=== PATIENT | female | born 1975 | race African-American/Black ===

== ENCOUNTER 2017-03-29 09:20 | Outpatient (CLI) | payer BC ==
--- NOTE | 2017-03-29 10:11 | Mammography Report ---
Screening mammogram: Baseline examination. The patient has a diffusely dense fibroglandular pattern bilaterally. In the left breast there is oval density in the medial breast which is questionably noted in the superior breast on lateral projection. In the lateral right CC projection there is an ovoid density that is questionably noted in the lateral projection. The findings otherwise appear generally unremarkable. CAD used. Impression: Bilateral asymmetries. Recommendation: Additional bilateral compression views and ultrasound as needed. BI-RADS CATEGORY: 0 = Needs additional imaging evaluation ACR BI-RADS MAMMOGRAPHIC CODES: 0 = Needs additional imaging evaluation; 1 = Negative; 2 = Benign; 3 = Probably benign; 4 = Suspicious; 5 = Malignant; 6 = Known biopsy-proven malignancy COMMENT: 1. Dense breast tissue, i.e., adenosis, fibrocystic changes, etc., may obscure an underlying neoplasm. 2. Approximately 10% of cancers are not detected with mammography. 3. A negative mammography report should not delay biopsy if a clinically suspicious mass is present.
== END 2017-03-29 09:21 | disposition home or self-care (01) ==
LOC: MAMMO 09:20
PROVIDERS: ATTEND Internal Medicine
DX: Z12.31 Encounter for screening mammogram for malignant neoplasm of breast (principal)
CPT/HCPCS: 77067; G0202

== ENCOUNTER 2017-04-19 08:03 | Outpatient (CLI) | payer BC ==
--- NOTE | 2017-04-19 08:58 | Mammography Report ---
BILATERAL DIGITAL DIAGNOSTIC MAMMOGRAM : 04/19/17 08:03:00 CLINICAL: Recall for bilateral asymmetries. COMPARISON:03/29/17 screening FINDINGS: Bilateral spot compression views were performed and are negative. IMPRESSION: Negative Mammogram. BI-RADS CATEGORY: 1 -- Negative RECOMMENDATION: Routine mammographic screening in one year. ACR BI-RADS MAMMOGRAPHIC CODES: 0 = Needs additional imaging evaluation; 1 = Negative; 2 = Benign; 3 = Probably benign; 4 = Suspicious; 5 = Malignant; 6 = Known biopsy-proven malignancy COMMENT: 1. Dense breast tissue, i.e., adenosis, fibrocystic changes, etc., may obscure an underlying neoplasm. 2. Approximately 10% of cancers are not detected with mammography. 3. A negative mammography report should not delay biopsy if a clinically suspicious mass is present. COMMENT: Patient follow-up letters are generated via our [employer] application.
== END 2017-04-19 08:04 | disposition home or self-care (01) ==
LOC: MAMMO 08:03
PROVIDERS: ATTEND Internal Medicine
DX: R92.8 Other abnormal and inconclusive findings on diagnostic imaging of breast (principal)
CPT/HCPCS: 77066; G0204

== ENCOUNTER 2017-12-17 05:05 | Inpatient (IN) | payer BC, OTHER ==
[2017-12-17] MEDS ORDERED: NACL 0.9% 1000 ML 1,000 ML IV ONE ×3 (05:36→12:32)
[2017-12-17] MEDS ORDERED: ZOFRAN IV ONE ×2 (05:36→11:48)
[2017-12-17] MEDS ORDERED: TORADOL ONE (05:44)
[2017-12-17] MEDS ORDERED: TORADOL IV ONE ×2 (06:05→09:34)
[2017-12-17 06:47] LABS: Alanine Aminotransferase 12 units/L (7-56); Albumin 4.6 g/dL (3.9-5); BUN/Creatinine Ratio 30; Blood Urea Nitrogen 12 mg/dL (7-17); Calcium 9.1 mg/dL (8.4-10.2); Hemolysis Index 21; Lipase 48 units/L (13-60)
[2017-12-17 06:49] LABS: Hemoglobin 12.5 gm/dl (10.1-14.3); Mean Corpuscular HGB Conc 32 % (30-34); Mean Corpuscular Hemoglobin 27 pg (28-32); Mean Corpuscular Volume 85 fl (79-97); Platelet Count 256 K/mm3 (140-440); Red Cell Distribution Width 14.2 % (13.2-15.2)
[2017-12-17 07:33] LABS: Bilirubin,Urine NEG (Negative); Blood,Urine NEG (Negative); Color,Urine Yellow (Yellow); Mucus,Urine 1+ /HPF; Protein,Urine <15 mg/dL mg/dL (Negative); Urobilinogen,Urine < 2.0 mg/dL (<2.0); WBC,Urine < 1.0 /HPF (0.0-6.0)
[2017-12-17 09:09] LABS: Band Neutrophils # (Manual) 0.9 K/mm3; Basophils % (Manual) 0 % (0.0-1.8); Eosinophils % (Manual) 0 % (0.0-4.3); RBC Morphology Normal; Total Cells Counted 100
[2017-12-17] MEDS ORDERED: PEPCID IV ONE (09:34)
--- NOTE | 2017-12-17 10:22 | Cat Scan Report ---
CT ABDOMEN PELVIS WITH CONTRAST: HISTORY: abdominal pain, nausea, vomiting, diarrhea. COMPARISON: none. TECHNIQUE: Helical CT in 1.25mm intervals following IV contrast. Sagittal and coronal reconstructions. FINDINGS: Lung bases: Normal. Liver: Normal. Biliary system: Normal. Pancreas: Normal. Spleen: Normal. Kidneys/ureters/bladder: Normal. Adrenal glands: Normal. Aorta: Normal. Intestines: There are multiple mildly dilated and fluid filled loops of distal small bowel. The terminal ileum and colon appear decompressed. The transition point is not confidently identified. The overall pattern is consistent with a partial distal small bowel obstruction. Appendix: Normal. Pelvic viscera: A 2.9 cm right ovarian cyst is identified. The uterus and left adnexa are unremarkable. Moderate to large left ovarian vein varicosity is noted. Ascites: Moderate pelvic ascites is identified. Adenopathy: None. Musculoskeletal: Normal. IMPRESSION: Mildly dilated loops of mid to distal small bowel are identified concerning for a partial small bowel obstruction. The site of the obstruction is not clearly evident but appears to be in the pelvis. Moderate pelvic ascites. 2.9 cm right ovarian cyst.
--- NOTE | 2017-12-17 10:23 | Emergency Department Report ---
Blank Doc - Documentation Documentation: She is a 42-year-old female who is presenting with nausea vomiting diarrhea. Patient states that she has some epigastric discomfort that is a burning aching sensation is 7 out of 10 in severity. Patient's has had numerous episodes of vomiting several diarrhea. Patient states that she has had some epigastric discomfort in the past but has not been this severe. Patient didn't have any pain for approximately 24 hours. Patient denies any fevers chills headache chest pain cough and congestion. Patient states she is not dizzy when she stands. Laboratory studies will be reviewed and the patient will have a CT of the abdomen and pelvis.
--- NOTE | 2017-12-17 11:01 | Emergency Department Report ---
ED Abdominal Pain HPI - General Chief Complaint: Abdominal Pain Stated Complaint: NAUSEA Time Seen by Provider: 12/17/17 09:22 Source: patient Mode of arrival: Ambulatory Limitations: No Limitations - History of Present Illness Initial Comments: 42-year-old female past medical history C-sections presents with complaint of nausea vomiting and abdominal pain since last night. Patient is awake alert and oriented 3 nontoxic-appearing speaking in full sentences. Denies any recent abdominal trauma. No previous surgeries other than C-sections. Denies any dysuria or hematuria or increased urinary frequency. Patient states that her abdomen is intermittently hurting her significantly. MD Complaint: abdominal pain -: Last night Location: periumbilical Migration to: periumbilical Severity scale (0 -10): 6 Quality: aching Consistency: intermittent Worsens With: eating - Related Data Home Medications Medication Instructions Recorded Confirmed Last Taken No Known Home Medications [No 12/17/17 12/17/17 Unknown Reported Home Medications] Allergies Allergy/AdvReac Type Severity Reaction Status Date / Time No Known Allergies Allergy Verified 12/17/17 05:52 ED Review of Systems ROS: Stated complaint: NAUSEA Other details as noted in HPI Constitutional: denies: chills, fever Eyes: denies: eye pain, eye discharge, vision change ENT: denies: ear pain, throat pain Respiratory: denies: cough, shortness of breath, wheezing Cardiovascular: denies: chest pain, palpitations Endocrine: no symptoms reported Gastrointestinal: abdominal pain, nausea, vomiting. denies: diarrhea Genitourinary: denies: urgency, dysuria, discharge Musculoskeletal: denies: back pain, joint swelling, arthralgia Skin: denies: rash, lesions Neurological: denies: headache, weakness, paresthesias Psychiatric: denies: anxiety, depression Hematological/Lymphatic: denies: easy bleeding, easy bruising ED Past Medical Hx - Past Medical History Previous Medical History?: No - Surgical History Additional Surgical History: - Social History Smoking Status: Never Smoker Substance Use Type: None - Medications Home Medications: Home Medications Medication Instructions Recorded Confirmed Last Taken Type No Known Home Medications [No 12/17/17 12/17/17 Unknown History Reported Home Medications] ED Physical Exam - General Limitations: No Limitations General appearance: alert, in no apparent distress - Head Head exam: Present: atraumatic, normocephalic - Eye Eye exam: Present: normal appearance - ENT ENT exam: Present: mucous membranes moist - Neck Neck exam: Present: normal inspection - Respiratory Respiratory exam: Present: normal lung sounds bilaterally. Absent: respiratory distress - Cardiovascular Cardiovascular Exam: Present: regular rate, normal rhythm. Absent: systolic murmur, diastolic murmur, rubs, gallop - GI/Abdominal GI/Abdominal exam: Present: tenderness, guarding, rebound, rigid, diminished bowel sounds - Extremities Exam Extremities exam: Present: normal inspection - Back Exam Back exam: Present: normal inspection - Neurological Exam Neurological exam: Present: alert, oriented X3, CN II-XII intact, normal gait - Psychiatric Psychiatric exam: Present: normal affect, normal mood - Skin Skin exam: Present: warm, dry, intact, normal color. Absent: rash ED Course Vital Signs 12/17/17 12/17/17 12/17/17 05:26 10:08 10:09 Temperature 97.5 F L 98.3 F Pulse Rate 79 68 Respiratory 16 14 14 Rate Blood Pressure 121/78 Blood Pressure 103/53 [Left] O2 Sat by Pulse 98 100 100 Oximetry ED Medical Decision Making - Lab Data Result diagrams: 12/17/17 05:58 12/17/17 05:58 - Medical Decision Making A/P: Small bowel obstruction 1- nothing by mouth, IV fluid, IV analgesics and antiemetics 2- discussed with Nabeel on-call physician 3- case discussed with on-call surgeon Dr. Starr and the hospitalist. Serial abdominal exams, bowel rest, and ngt. patient has been nothing by mouth since as per patient. Surgeon to reassess in next 24 hours 4- NG tube in place Critical care attestation.: If time is entered above; I have spent that time in minutes in the direct care of this critically ill patient, excluding procedure time. ED Disposition Clinical Impression: Small bowel obstruction Disposition: OP ADMIT IP TO THIS HOSP Is pt being admited?: Yes Does the pt Need Aspirin: No Condition: Stable Instructions: Abdominal Pain (ED) Referrals: PRIMARY CARE, [Primary Care Provider] - 3-5 Days
--- NOTE | 2017-12-17 12:50 | XRay Report ---
AP ABDOMEN: HISTORY: Nasogastric tube placement. The nasogastric tube terminates in the fundus of the stomach. Mildly dilated loops of small bowel in the abdomen are again identified concerning for a partial small bowel obstruction. There is residual IV contrast in the renal collecting systems and bladder. IMPRESSION: The nasogastric tube terminates in the fundus of the stomach.
[2017-12-17] MEDS ORDERED: ZOFRAN IV PRN ×2 (19:32→20:46)
[2017-12-17] MEDS ORDERED: SODIUM CHLORIDE FLUSH SYRINGE 10 ML IV PRN (19:32)
[2017-12-17] MEDS ORDERED: TYLENOL PO PRN (19:32)
[2017-12-17] MEDS ORDERED: MORPHINE IV PRN ×2 (19:32→20:35)
--- NOTE | 2017-12-17 19:32 | History and Physical Report ---
History of Present Illness Date of examination: 12/17/17 Date of admission: 12/17/17 14:15 Chief complaint: CC Abd pain and vomiting for 1 day. History of present illness: History of Present Illness Initial Comments: 42-year-old female past medical history C-sections presents with complaint of nausea, vomiting and abdominal pain since last night. Patient is awake alert and oriented 3 nontoxic-appearing speaking in full sentences. Denies any recent abdominal trauma. No previous surgeries other than C-sections. Denies any dysuria or hematuria or increased urinary frequency. Patient states that her abdomen is intermittently hurting her significantly. MD Complaint: abdominal pain-: Last night Location: periumbilical Radiation to: periumbilical Severity scale (0 -10): 6 Quality: aching Consistency: intermittent Worsens With: eating - Past Medical History Previous Medical History?: No - Surgical History Additional Surgical History: - Social History Smoking Status: Never Smoker Substance Use Type: None - Medications Home Medications: Home Medications Medication Instructions Recorded Confirmed Last Taken Type No Known Home Medications [No 12/17/17 12/17/17 Unknown History Reported Home Medications] Review of Systems ROS: Stated complaint: NAUSEA Other details as noted in HPI Constitutional: denies: chills, fever Eyes: denies: eye pain, eye discharge, vision change ENT: denies: ear pain, throat pain Respiratory: denies: cough, shortness of breath, wheezing Cardiovascular: denies: chest pain, palpitations Endocrine: no symptoms reported Gastrointestinal: abdominal pain, nausea, vomiting. denies: diarrhea Genitourinary: denies: urgency, dysuria, discharge Musculoskeletal: denies: back pain, joint swelling, arthralgia Skin: denies: rash, lesions Neurological: denies: headache, weakness, paresthesias Psychiatric: denies: anxiety, depression Hematological/Lymphatic: denies: easy bleeding, easy bruising Medications and Allergies Allergies Allergy/AdvReac Type Severity Reaction Status Date / Time No Known Allergies Allergy Verified 12/17/17 05:52 Home Medications Medication Instructions Recorded Confirmed Last Taken Type No Known Home Medications [No 12/17/17 12/17/17 Unknown History Reported Home Medications] Active Meds: Active Medications Sodium Chloride (Nacl 0.9% 1000 Ml) 1,000 mls @ 125 mls/hr IV ONCE ONE Stop: 12/17/17 20:31 Last Admin: 12/17/17 12:33 Dose: 125 mls/hr Exam - Physical Exam Narrative exam: Lying in bed in mild distress - Constitutional Vitals: Temp Pulse Resp BP Pulse Ox 98.6 F 68 15 105/61 100 12/17/17 16:00 12/17/17 19:15 12/17/17 19:15 12/17/17 19:15 12/17/17 19:15 General appearance: Present: mild distress, well-nourished - EENT Eyes: Present: PERRL ENT: hearing intact, clear oral mucosa - Neck Neck: Present: supple, normal ROM - Respiratory Respiratory effort: normal Respiratory: bilateral: CTA - Cardiovascular Heart rate: 78 Rhythm: regular Heart Sounds: Present: S1 & S2. Absent: rub, click - Extremities Extremities: no ischemia, pulses intact, pulses symmetrical, No edema Peripheral Pulses: within normal limits - Abdominal General gastrointestinal: Present: soft, tender, distended, normal bowel sounds , absent bowel sounds Female genitourinary: Present: normal - Rectal Rectal Exam: deferred - Integumentary Integumentary: Present: clear, warm, dry - Musculoskeletal Musculoskeletal: gait normal, strength equal bilaterally - Psychiatric Psychiatric: appropriate mood/affect, intact judgment & insight - Neurologic Neurologic: CNII-XII intact, moves all extremities - Allied Health Allied health notes reviewed: nursing, case management Results - Labs CBC & Chem 7: 12/18/17 05:29 12/18/17 05:29 Labs: Laboratory Last Values WBC 18.7 K/mm3 (4.5-11.0) H 12/17/17 05:58 RBC 4.60 M/mm3 (3.65-5.03) 12/17/17 05:58 Hgb 12.5 gm/dl (10.1-14.3) 12/17/17 05:58 Hct 39.0 % (30.3-42.9) 12/17/17 05:58 MCV 85 fl (79-97) 12/17/17 05:58 MCH 27 pg (28-32) L 12/17/17 05:58 MCHC 32 % (30-34) 12/17/17 05:58 RDW 14.2 % (13.2-15.2) 12/17/17 05:58 Plt Count 256 K/mm3 (140-440) 12/17/17 05:58 Add Manual Diff Complete 12/17/17 05:58 Total Counted 100 12/17/17 05:58 Seg Neutrophils % Expressive Music Therapist 12/17/17 05:58 Seg Neuts % (Manual) 83.0 % (40.0-70.0) H 12/17/17 05:58 Band Neutrophils % 5.0 % 12/17/17 05:58 Lymphocytes % (Manual) 5.0 % (13.4-35.0) L 12/17/17 05:58 Reactive Lymphs % (Man) 0 % 12/17/17 05:58 Monocytes % (Manual) 7.0 % (0.0-7.3) 12/17/17 05:58 Eosinophils % (Manual) 0 % (0.0-4.3) 12/17/17 05:58 Basophils % (Manual) 0 % (0.0-1.8) 12/17/17 05:58 Metamyelocytes % 0 % 12/17/17 05:58 Myelocytes % 0 % 12/17/17 05:58 Promyelocytes % 0 % 12/17/17 05:58 Blast Cells % 0 % 12/17/17 05:58 Nucleated RBC % Not Reportable 12/17/17 05:58 Seg Neutrophils # Man 15.5 K/mm3 (1.8-7.7) H 12/17/17 05:58 Band Neutrophils # 0.9 K/mm3 12/17/17 05:58 Lymphocytes # (Manual) 0.9 K/mm3 (1.2-5.4) L 12/17/17 05:58 Abs React Lymphs (Man) 0.0 K/mm3 12/17/17 05:58 Monocytes # (Manual) 1.3 K/mm3 (0.0-0.8) H 12/17/17 05:58 Eosinophils # (Manual) 0.0 K/mm3 (0.0-0.4) 12/17/17 05:58 Basophils # (Manual) 0.0 K/mm3 (0.0-0.1) 12/17/17 05:58 Metamyelocytes # 0.0 K/mm3 12/17/17 05:58 Myelocytes # 0.0 K/mm3 12/17/17 05:58 Promyelocytes # 0.0 K/mm3 12/17/17 05:58 Blast Cells # 0.0 K/mm3 12/17/17 05:58 WBC Morphology Not Reportable 12/17/17 05:58 Hypersegmented Neuts Not Reportable 12/17/17 05:58 Hyposegmented Neuts Not Reportable 12/17/17 05:58 Hypogranular Neuts Not Reportable 12/17/17 05:58 Smudge Cells Not Reportable 12/17/17 05:58 Toxic Granulation Not Reportable 12/17/17 05:58 Toxic Vacuolation Not Reportable 12/17/17 05:58 Dohle Bodies Not Reportable 12/17/17 05:58 Pelger-Huet Anomaly Not Reportable 12/17/17 05:58 Laura Rods Not Reportable 12/17/17 05:58 Platelet Estimate Not Reportable 12/17/17 05:58 Clumped Platelets Not Reportable 12/17/17 05:58 Plt Clumps, EDTA Not Reportable 12/17/17 05:58 Large Platelets Not Reportable 12/17/17 05:58 Giant Platelets Not Reportable 12/17/17 05:58 Platelet Satelliting Not Reportable 12/17/17 05:58 Plt Morphology Comment Not Reportable 12/17/17 05:58 RBC Morphology Normal 12/17/17 05:58 Dimorphic RBCs Not Reportable 12/17/17 05:58 Polychromasia Not Reportable 12/17/17 05:58 Hypochromasia Not Reportable 12/17/17 05:58 Poikilocytosis Not Reportable 12/17/17 05:58 Anisocytosis Not Reportable 12/17/17 05:58 Microcytosis Not Reportable 12/17/17 05:58 Macrocytosis Not Reportable 12/17/17 05:58 Spherocytes Not Reportable 12/17/17 05:58 Pappenheimer Bodies Not Reportable 12/17/17 05:58 Sickle Cells Not Reportable 12/17/17 05:58 Target Cells Not Reportable 12/17/17 05:58 Tear Drop Cells Not Reportable 12/17/17 05:58 Ovalocytes Not Reportable 12/17/17 05:58 Helmet Cells Not Reportable 12/17/17 05:58 Davis-Ursina Bodies Not Reportable 12/17/17 05:58 [place] Rings Not Reportable 12/17/17 05:58 Volant Cells Not Reportable 12/17/17 05:58 Bite Cells Not Reportable 12/17/17 05:58 Crenated Cell Not Reportable 12/17/17 05:58 Elliptocytes Not Reportable 12/17/17 05:58 Acanthocytes (Spur) Not Reportable 12/17/17 05:58 Rouleaux Not Reportable 12/17/17 05:58 Hemoglobin C Crystals Not Reportable 12/17/17 05:58 Schistocytes Not Reportable 12/17/17 05:58 Malaria parasites Not Reportable 12/17/17 05:58 Alexis Bodies Not Reportable 12/17/17 05:58 Hem Pathologist Commnt No 12/17/17 05:58 Sodium 140 mmol/L (137-145) 12/17/17 05:58 Potassium 3.9 mmol/L (3.6-5.0) 12/17/17 05:58 Chloride 99.4 mmol/L (98-107) 12/17/17 05:58 Carbon Dioxide 26 mmol/L (22-30) 12/17/17 05:58 Anion Gap 19 mmol/L 12/17/17 05:58 BUN 12 mg/dL (7-17) 12/17/17 05:58 Creatinine 0.4 mg/dL (0.7-1.2) L 12/17/17 05:58 Estimated GFR > 60 ml/min 12/17/17 05:58 BUN/Creatinine Ratio 30 % 12/17/17 05:58 Glucose 131 mg/dL (65-100) H 12/17/17 05:58 Lactic Acid 1.00 mmol/L (0.7-2.0) 12/17/17 15:46 Calcium 9.1 mg/dL (8.4-10.2) 12/17/17 05:58 Total Bilirubin 0.50 mg/dL (0.1-1.2) 12/17/17 05:58 AST 22 units/L (5-40) 12/17/17 05:58 ALT 12 units/L (7-56) 12/17/17 05:58 Alkaline Phosphatase 66 units/L (35-129) 12/17/17 05:58 Total Protein 8.0 g/dL (6.3-8.2) 12/17/17 05:58 Albumin 4.6 g/dL (3.9-5) 12/17/17 05:58 Albumin/Globulin Ratio 1.4 % 12/17/17 05:58 Lipase 48 units/L (13-60) 12/17/17 05:58 HCG, Qual Negative (Negative) 12/17/17 05:58 Urine Color Yellow (Yellow) 12/17/17 06:48 Urine Turbidity Clear (Clear) 12/17/17 06:48 Urine pH 6.0 (5.0-7.0) 12/17/17 06:48 Ur Specific [place] 1.019 (1.003-1.030) 12/17/17 06:48 Urine Protein <15 mg/dl mg/dL (Negative) 12/17/17 06:48 Urine Glucose (UA) Neg mg/dL (Negative) 12/17/17 06:48 Urine Ketones Tr mg/dL (Negative) 12/17/17 06:48 Urine Blood Neg (Negative) 12/17/17 06:48 Urine Nitrite Neg (Negative) 12/17/17 06:48 Urine Bilirubin Neg (Negative) 12/17/17 06:48 Urine Urobilinogen < 2.0 mg/dL (<2.0) 12/17/17 06:48 Ur Leukocyte Esterase Neg (Negative) 12/17/17 06:48 Urine WBC (Auto) < 1.0 /HPF (0.0-6.0) 12/17/17 06:48 Urine RBC (Auto) 4.0 /HPF (0.0-6.0) 12/17/17 06:48 U Epithel Cells (Auto) 2.0 /HPF (0-13.0) 12/17/17 06:48 Urine Mucus 1+ /HPF 12/17/17 06:48 Blood Type B POSITIVE 12/17/17 11:31 Antibody Screen Negative 12/17/17 11:31 - Imaging and Cardiology Imaging and Cardiology: CT Abdomen Mildly dilated loops of mid to distal small bowel are identified concerning fora partialsmall bowel obstruction.The site of obstruction is not clearly evident but appears to be in the pelvis.2.9 cm right ovarian cyst. Assessment and Plan Advance Directives: Yes (Full code) VTE prophylaxis?: Chemical Plan of care discussed with patient/family: Yes - Patient Problems (1) Small bowel obstruction Current Visit: Yes Status: Acute Plan to address problem: Conservative treatment for now. NG tube to suction IV fluids (2) Hypokalemia Current Visit: Yes Status: Acute Plan to address problem: Suppplemented (3) Leukocytosis Current Visit: Yes Status: Acute Qualifiers: Leukocytosis type: unspecified Qualified Code(s): D72.829 - Elevated white blood cell count, unspecified Plan to address problem: Probable demargination Lactic acid is high Will initiate on Zosyn and deescalate depending on Blood cultures in 48 hrs (4) DVT prophylaxis Current Visit: Yes Status: Acute Plan to address problem: On Lovenox and GI prophylaxis
[2017-12-17] MEDS ORDERED: D5NS 1,000 ML IV SCH (20:00)
[2017-12-17] MEDS: SODIUM CHLORIDE FLUSH SYRINGE 10 ML IV SCH (22:00)
--- NOTE | 2017-12-17 22:12 | XRay Report ---
FINAL REPORT PROCEDURE: XR ABD SERIES W CXR 1V TECHNIQUE: Abdominal series complete, including supine and upright AP views of the abdomen and frontal chest. HISTORY: Rule out small bowel obstruction. COMPARISON: No prior studies are available for comparison. FINDINGS: Heart: Normal. Mediastinum/Vessels: Normal. Lungs/Pleural space: Air and stool present throughout the colon. Mildly distended loops of small bowel in the mid abdomen. Bowel gas pattern: Nonobstructive. Masses or calcifications: None. Bony structures: No acute osseous abnormality. Other: Enteric tube overlies expected location of the stomach. Contrast in the bladder. IMPRESSION: No radiographic evidence of acute cardiopulmonary disease. Air in stool throughout the colon. Mildly distended loops of small bowel in the mid abdomen, consider ileus, cannot exclude partial small bowel obstruction. Consider attention on followup radiographs. Enteric tube overlies expected location of the stomach.
[2017-12-18 05:50] LABS: Basophils % (Auto) 0.3 % (0.0-1.8); Eosinophils # (Auto) 0.1 K/mm3 (0.0-0.4); Eosinophils % (Auto) 1.1 % (0.0-4.3); Hematocrit 28.5 % (30.3-42.9); Hemoglobin 9.4 gm/dl (10.1-14.3); Lymphocytes # (Auto) 1.2 K/mm3 (1.2-5.4); Lymphocytes % (Auto) 18.5 % (13.4-35.0); Mean Corpuscular HGB Conc 33 % (30-34); Mean Corpuscular Hemoglobin 28 pg (28-32); Mean Corpuscular Volume 86 fl (79-97); Monocytes # (Auto) 0.6 K/mm3 (0.0-0.8); Monocytes % (Auto) 9.1 % (0.0-7.3); Platelet Count 187 K/mm3 (140-440); Red Blood Count 3.32 M/mm3 (3.65-5.03); Red Cell Distribution Width 14.1 % (13.2-15.2)
[2017-12-18 06:04] LABS: Alanine Aminotransferase 9 units/L (7-56); Albumin 2.9 g/dL (3.9-5); BUN/Creatinine Ratio 20; Blood Urea Nitrogen 10 mg/dL (7-17); Calcium 7.6 mg/dL (8.4-10.2); Hemolysis Index 3
--- NOTE | 2017-12-18 08:26 | Progress Note ---
Assessment and Plan Assessment and plan: Patient is a 42 yo woman history of but without chronic medical problems who pw abd pains, n/v/d * CT Abdomen/pelvis with IV contrast impression: Mildly dilated loops of mid to distal small bowel are identified concerning fora partialsmall bowel obstruction.The site of obstruction is not clearly evident but appears to be in the pelvis.2.9 cm right ovarian cyst. * XR abd/CXR reported as no radiographic evidenc of acute cardiopulmonary disease, air in stool in the mid abdomen, consider ileus, cannot exclude partial small bowel obstruction -Small bowel obstruction: NG tube to suction, IV fluids, Gen. Surgeon, Dr. Starr already notified -Hypokalemia: Suppplemented, monitor closely -Leukocytosis resolved quickly: most likely reactive, Lactic acid is high, Will initiate on Zosyn and deescalate depending on Blood cultures in 48 hrs -DVT prophylaxis: On Lovenox -GI prophylaxis: iv protonix Gen. Surgeon has not evaluated patient yet, so I called Dr. Satrr answering service History Interval history: Patient was seen and examined. Follow-up on current diagnosis of n/v. Overnight uneventful. Patient denies any chest pain, shortness breath, or severe headaches. Imaging, nursing note, chart, labs and old chart reviewed. Discussed with patient. Hospitalist Physical - Physical exam Narrative exam: GEN: WDWN, NAD, Awake, Alert, Orientated x 3 HEENT: NCAT, EOMI, PERRL, ngt in place NECK: supple, no adenopathy, no thyromegaly, no JVD CVS/HEART: RRR, normal S1S2, pulses present bilaterally CHEST/LUNGS: CTA B, Symmetrical chest expansion, good air entry bilaterally GI/Abdomen: soft, hypoactive bs, no guarding or rebound /Bladder: no suprapubic tenderness, no CVA or paraspinal tenderness EXT/Skin: no c/c/e, no obvious rash MSK: FROM x 4 Neuro: CN 2-12 grossly intact, no new focal deficits Psych: calm - Constitutional Vitals: Temp Pulse Resp BP Pulse Ox 97.9 F 75 18 118/72 100 12/17/17 20:09 12/17/17 20:09 12/17/17 22:00 12/17/17 20:09 12/17/17 20:09 General appearance: Present: well-nourished Results - Labs CBC & Chem 7: 12/18/17 05:29 12/18/17 05:29 Labs: Laboratory Last Values WBC 6.7 K/mm3 (4.5-11.0) 12/18/17 05:29 RBC 3.32 M/mm3 (3.65-5.03) L 12/18/17 05:29 Hgb 9.4 gm/dl (10.1-14.3) L D 12/18/17 05:29 Hct 28.5 % (30.3-42.9) L D 12/18/17 05:29 MCV 86 fl (79-97) 12/18/17 05:29 MCH 28 pg (28-32) 12/18/17 05:29 MCHC 33 % (30-34) 12/18/17 05:29 RDW 14.1 % (13.2-15.2) 12/18/17 05:29 Plt Count 187 K/mm3 (140-440) 12/18/17 05:29 Lymph % (Auto) 18.5 % (13.4-35.0) 12/18/17 05:29 [place] % (Auto) 9.1 % (0.0-7.3) H 12/18/17 05:29 Eos % (Auto) 1.1 % (0.0-4.3) 12/18/17 05:29 Baso % (Auto) 0.3 % (0.0-1.8) 12/18/17 05:29 Lymph # 1.2 K/mm3 (1.2-5.4) 12/18/17 05:29 [place] # 0.6 K/mm3 (0.0-0.8) 12/18/17 05:29 Eos # 0.1 K/mm3 (0.0-0.4) 12/18/17 05:29 Baso # 0.0 K/mm3 (0.0-0.1) 12/18/17 05:29 Add Manual Diff Complete 12/17/17 05:58 Total Counted 100 12/17/17 05:58 Seg Neutrophils % 71.0 % (40.0-70.0) H 12/18/17 05:29 Seg Neuts % (Manual) 83.0 % (40.0-70.0) H 12/17/17 05:58 Band Neutrophils % 5.0 % 12/17/17 05:58 Lymphocytes % (Manual) 5.0 % (13.4-35.0) L 12/17/17 05:58 Reactive Lymphs % (Man) 0 % 12/17/17 05:58 Monocytes % (Manual) 7.0 % (0.0-7.3) 12/17/17 05:58 Eosinophils % (Manual) 0 % (0.0-4.3) 12/17/17 05:58 Basophils % (Manual) 0 % (0.0-1.8) 12/17/17 05:58 Metamyelocytes % 0 % 12/17/17 05:58 Myelocytes % 0 % 12/17/17 05:58 Promyelocytes % 0 % 12/17/17 05:58 Blast Cells % 0 % 12/17/17 05:58 Nucleated RBC % Not Reportable 12/17/17 05:58 Seg Neutrophils # 4.8 K/mm3 (1.8-7.7) 12/18/17 05:29 Seg Neutrophils # Man 15.5 K/mm3 (1.8-7.7) H 12/17/17 05:58 Band Neutrophils # 0.9 K/mm3 12/17/17 05:58 Lymphocytes # (Manual) 0.9 K/mm3 (1.2-5.4) L 12/17/17 05:58 Abs React Lymphs (Man) 0.0 K/mm3 12/17/17 05:58 Monocytes # (Manual) 1.3 K/mm3 (0.0-0.8) H 12/17/17 05:58 Eosinophils # (Manual) 0.0 K/mm3 (0.0-0.4) 12/17/17 05:58 Basophils # (Manual) 0.0 K/mm3 (0.0-0.1) 12/17/17 05:58 Metamyelocytes # 0.0 K/mm3 12/17/17 05:58 Myelocytes # 0.0 K/mm3 12/17/17 05:58 Promyelocytes # 0.0 K/mm3 12/17/17 05:58 Blast Cells # 0.0 K/mm3 12/17/17 05:58 WBC Morphology Not Reportable 12/17/17 05:58 Hypersegmented Neuts Not Reportable 12/17/17 05:58 Hyposegmented Neuts Not Reportable 12/17/17 05:58 Hypogranular Neuts Not Reportable 12/17/17 05:58 Smudge Cells Not Reportable 12/17/17 05:58 Toxic Granulation Not Reportable 12/17/17 05:58 Toxic Vacuolation Not Reportable 12/17/17 05:58 Dohle Bodies Not Reportable 12/17/17 05:58 Pelger-Huet Anomaly Not Reportable 12/17/17 05:58 Laura Rods Not Reportable 12/17/17 05:58 Platelet Estimate Not Reportable 12/17/17 05:58 Clumped Platelets Not Reportable 12/17/17 05:58 Plt Clumps, EDTA Not Reportable 12/17/17 05:58 Large Platelets Not Reportable 12/17/17 05:58 Giant Platelets Not Reportable 12/17/17 05:58 Platelet Satelliting Not Reportable 12/17/17 05:58 Plt Morphology Comment Not Reportable 12/17/17 05:58 RBC Morphology Normal 12/17/17 05:58 Dimorphic RBCs Not Reportable 12/17/17 05:58 Polychromasia Not Reportable 12/17/17 05:58 Hypochromasia Not Reportable 12/17/17 05:58 Poikilocytosis Not Reportable 12/17/17 05:58 Anisocytosis Not Reportable 12/17/17 05:58 Microcytosis Not Reportable 12/17/17 05:58 Macrocytosis Not Reportable 12/17/17 05:58 Spherocytes Not Reportable 12/17/17 05:58 Pappenheimer Bodies Not Reportable 12/17/17 05:58 Sickle Cells Not Reportable 12/17/17 05:58 Target Cells Not Reportable 12/17/17 05:58 Tear Drop Cells Not Reportable 12/17/17 05:58 Ovalocytes Not Reportable 12/17/17 05:58 Helmet Cells Not Reportable 12/17/17 05:58 Davis-Vass[place] Bodies Not Reportable 12/17/17 05:58 [place] Rings Not Reportable 12/17/17 05:58 [place] Cells Not Reportable 12/17/17 05:58 Bite Cells Not Reportable 12/17/17 05:58 Crenated Cell Not Reportable 12/17/17 05:58 Elliptocytes Not Reportable 12/17/17 05:58 Acanthocytes (Spur) Not Reportable 12/17/17 05:58 Rouleaux Not Reportable 12/17/17 05:58 Hemoglobin C Crystals Not Reportable 12/17/17 05:58 Schistocytes Not Reportable 12/17/17 05:58 Malaria parasites Not Reportable 12/17/17 05:58 Alexis Bodies Not Reportable 12/17/17 05:58 Hem Pathologist Commnt No 12/17/17 05:58 Sodium 143 mmol/L (137-145) 12/18/17 05:29 Potassium 3.2 mmol/L (3.6-5.0) L 12/18/17 05:29 Chloride 109.4 mmol/L (98-107) H 12/18/17 05:29 Carbon Dioxide 27 mmol/L (22-30) 12/18/17 05:29 Anion Gap 10 mmol/L 12/18/17 05:29 BUN 10 mg/dL (7-17) 12/18/17 05:29 Creatinine 0.5 mg/dL (0.7-1.2) L 12/18/17 05:29 Estimated GFR > 60 ml/min 12/18/17 05:29 BUN/Creatinine Ratio 20 % 12/18/17 05:29 Glucose 121 mg/dL (65-100) H 12/18/17 05:29 Hemoglobin A1c 5.5 % (4-6) 12/17/17 19:33 Lactic Acid 1.00 mmol/L (0.7-2.0) 12/17/17 15:46 Calcium 7.6 mg/dL (8.4-10.2) L D 12/18/17 05:29 Total Bilirubin 0.60 mg/dL (0.1-1.2) 12/18/17 05:29 AST 15 units/L (5-40) 12/18/17 05:29 ALT 9 units/L (7-56) 12/18/17 05:29 Alkaline Phosphatase 43 units/L (35-129) 12/18/17 05:29 Total Protein 5.4 g/dL (6.3-8.2) L D 12/18/17 05:29 Albumin 2.9 g/dL (3.9-5) L 12/18/17 05:29 Albumin/Globulin Ratio 1.2 % 12/18/17 05:29 Lipase 48 units/L (13-60) 12/17/17 05:58 HCG, Qual Negative (Negative) 12/17/17 05:58 Urine Color Yellow (Yellow) 12/17/17 06:48 Urine Turbidity Clear (Clear) 12/17/17 06:48 Urine pH 6.0 (5.0-7.0) 12/17/17 06:48 Ur Specific [place] 1.019 (1.003-1.030) 12/17/17 06:48 Urine Protein <15 mg/dl mg/dL (Negative) 12/17/17 06:48 Urine Glucose (UA) Neg mg/dL (Negative) 12/17/17 06:48 Urine Ketones Tr mg/dL (Negative) 12/17/17 06:48 Urine Blood Neg (Negative) 12/17/17 06:48 Urine Nitrite Neg (Negative) 12/17/17 06:48 Urine Bilirubin Neg (Negative) 12/17/17 06:48 Urine Urobilinogen < 2.0 mg/dL (<2.0) 12/17/17 06:48 Ur Leukocyte Esterase Neg (Negative) 12/17/17 06:48 Urine WBC (Auto) < 1.0 /HPF (0.0-6.0) 12/17/17 06:48 Urine RBC (Auto) 4.0 /HPF (0.0-6.0) 12/17/17 06:48 U Epithel Cells (Auto) 2.0 /HPF (0-13.0) 12/17/17 06:48 Urine Mucus 1+ /HPF 12/17/17 06:48 Blood Type B POSITIVE 12/17/17 11:31 Antibody Screen Negative 12/17/17 11:31
[2017-12-18] MEDS: PEPCID IV SCH ×2 (09:28→21:44)
[2017-12-18] MEDS: PROTONIX IV SCH (09:28)
--- NOTE | 2017-12-18 10:09 | XRay Report ---
ABDOMINAL SERIES INDICATION: Evaluate for small bowel obstruction. COMPARISON: Yesterday. FINDINGS: Abdominal series, three radiographs, 9:33 AM, 12/18/2017 demonstrate nonobstructive bowel gas pattern without focal suspicious calcifications, pneumatosis or pneumoperitoneum. A nasogastric tube again loops in the proximal stomach with its tip directed back toward the medial fundus/GE junction. Accompanying chest radiograph demonstrates normal cardiomediastinal silhouette. Clear lungs. Unremarkable bones. CONCLUSION: No acute radiographic abnormality with stable nasogastric tube, as described. Thank you for the opportunity to participate in this patient's care.
[2017-12-18] MEDS: ZOSYN/NS 4.5GM/100ML 4.5 GM/100 ML VIAL IV SCH ×3 (11:24→21:43)
[2017-12-18] MEDS: SODIUM CHLORIDE FLUSH SYRINGE 10 ML IV SCH ×2 (11:29→21:45)
[2017-12-18] MEDS: KCL 10MEQ/100ML 10 MEQ/100 ML BAG IV SCH ×3 (12:36→15:21)
[2017-12-18] MEDS ORDERED: D5NS 1,000 ML with KCL 20 MEQ IV SCH (13:00)
[2017-12-18] MEDS ORDERED: KCL 10MEQ/100ML 10 MEQ/100 ML BAG IV SCH (14:00)
--- NOTE | 2017-12-18 14:04 | Progress Note ---
Assessment and Plan Full consult dictated. Chief complaint: CC Abd pain and vomiting for 1 day. History of present illness: History of Present Illness Initial Comments: 42-year-old female past medical history C-sections presents with complaint of nausea, vomiting and abdominal pain since last night. Patient is awake alert and oriented 3 nontoxic-appearing speaking in full sentences. Denies any recent abdominal trauma. No previous surgeries other than C-sections. Denies any dysuria or hematuria or increased urinary frequency. Patient states that her abdomen is intermittently hurting her significantly. MD Complaint: abdominal pain-: Last night Location: periumbilical Radiation to: periumbilical Severity scale (0 -10): 6 Quality: aching Consistency: intermittent Worsens With: eating Pt feeling better now. Abd series this am essentially wnl. ileus? low K Abd soft, non tender at present resolving partial sbo vs ileus electrolyte correction monitor h/h sbft study in am Selected Entries 12/18/17 12/18/17 08:00 08:37 Temperature 97.8 F Pulse Rate 65 Pulse Rhythm [ Regular Left Radial] Blood Pressure 107/70 [Left] Laboratory Tests 12/18/17 12/18/17 05:29 05:29 WBC 6.7 Hgb 9.4 L D Hct 28.5 L D Sodium 143 Potassium 3.2 L Chloride 109.4 H BUN 10 Creatinine 0.5 L Glucose 121 H Total Bilirubin 0.60 AST 15 ALT 9 Alkaline Phosphatase 43 Objective Vital Signs - 12hr 12/18/17 08:00 Temperature 97.8 F Pulse Rate 65 Respiratory 14 Rate Blood Pressure 107/70 [Left] O2 Sat by Pulse 99 Oximetry - Labs 12/18/17 05:29 12/18/17 05:29 Diabetes panel 12/17/17 12/18/17 Range/Units 19:33 05:29 Sodium 143 (137-145) mmol/L Potassium 3.2 L (3.6-5.0) mmol/L Chloride 109.4 H (98-107) mmol/L Carbon Dioxide 27 (22-30) mmol/L BUN 10 (7-17) mg/dL Creatinine 0.5 L (0.7-1.2) mg/dL Glucose 121 H (65-100) mg/dL Hemoglobin A1c 5.5 (4-6) % Calcium 7.6 L D (8.4-10.2) mg/dL AST 15 (5-40) units/L ALT 9 (7-56) units/L Alkaline Phosphatase 43 (35-129) units/L Total Protein 5.4 L D (6.3-8.2) g/dL Albumin 2.9 L (3.9-5) g/dL Calcium panel 12/18/17 Range/Units 05:29 Calcium 7.6 L D (8.4-10.2) mg/dL Albumin 2.9 L (3.9-5) g/dL Pituitary panel 12/18/17 Range/Units 05:29 Sodium 143 (137-145) mmol/L Potassium 3.2 L (3.6-5.0) mmol/L Chloride 109.4 H (98-107) mmol/L Carbon Dioxide 27 (22-30) mmol/L BUN 10 (7-17) mg/dL Creatinine 0.5 L (0.7-1.2) mg/dL Glucose 121 H (65-100) mg/dL Calcium 7.6 L D (8.4-10.2) mg/dL Adrenal panel 12/18/17 Range/Units 05:29 Sodium 143 (137-145) mmol/L Potassium 3.2 L (3.6-5.0) mmol/L Chloride 109.4 H (98-107) mmol/L Carbon Dioxide 27 (22-30) mmol/L BUN 10 (7-17) mg/dL Creatinine 0.5 L (0.7-1.2) mg/dL Glucose 121 H (65-100) mg/dL Calcium 7.6 L D (8.4-10.2) mg/dL Total Bilirubin 0.60 (0.1-1.2) mg/dL AST 15 (5-40) units/L ALT 9 (7-56) units/L Alkaline Phosphatase 43 (35-129) units/L Total Protein 5.4 L D (6.3-8.2) g/dL Albumin 2.9 L (3.9-5) g/dL
--- NOTE | 2017-12-18 14:26 | Consultation ---
REASON FOR CONSULTATION: Rule out partial small bowel obstruction. HISTORY OF PRESENT ILLNESS: The patient is a pleasant 42-year-old [place] female, who presented to the hospital with a chief complaint of abdominal pain accompanied by nausea, vomiting, and diarrhea. She does state; however, that she is " this morning. Denies any abdominal pain at present. PAST MEDICAL HISTORY: Negative. PAST SURGICAL HISTORY: Status post x 2, also gastroscopy which was essentially normal. ALLERGIES: No known allergies. MEDICATIONS: Include H2 blockers and multivitamins. FAMILY HISTORY: Diabetes. SOCIAL HISTORY: Denies any smoking or drinking. REVIEW OF SYSTEMS: Noncontributory. PHYSICAL EXAMINATION: GENERAL: At this time reveals the patient to be awake, alert, cooperative, in no acute distress. NG tube is in place. VITAL SIGNS: Show her to be afebrile with a temperature 97.8, blood pressure is 107/70, pulse 65, and respirations of 14. HEENT: Pupils are equal and reactive to light and accommodation. Sclerae nonicteric. ABDOMEN: Reveals to be soft and nontender at present. Bowel sounds are present, somewhat hypoactive. LABORATORY DATA: Lab work at present includes CBC which shows white count of 6.7. It was noted white count was 18.7 on admission last night. H and H is 9.4 and 28.5. Previous H and H last night was 12.5 and 39. It is possible that this is equilibration now from dehydration and subsequent hydration with IV fluids. I will monitor the H and H, however. Electrolytes exhibited low potassium of 3.2. Sodium is 143, chloride 109, BUN is 10, creatinine is 0.5. LFTs are essentially normal. CT of the abdomen was performed last night, which showed mildly dilated loops of mid and distal small bowel and some concern for partial small-bowel obstruction. Subsequent abdominal series this morning shows no acute radiographic abnormality. I have seen the films myself. Again, they essentially appeared normal. IMPRESSION: At this time is that of a 42-year-old healthy female, status post two C-sections in the past. Rule out partial resolving, partial small-bowel obstruction versus an ileus secondary to hypokalemia, which also appears to be clinically resolving. RECOMMENDATIONS: At this time is to keep the patient n.p.o. for now. We will correct fluid and electrolyte abnormalities. We will follow up with a small bowel follow through study in the morning to hopefully be able to discontinue the NG and possibly attempt clear liquid diet if study is normal. We will follow closely with you. JOB# [id number] DARI/DEON
[2017-12-18] MEDS: D5W/0.45% NACL/KCL 40 MEQ 40 MEQ/1,000 ML BAG IV SCH ×2 (14:45→23:41)
[2017-12-18] MEDS ORDERED: CHLORASEPTIC MM PRN (15:16)
[2017-12-18] MEDS: LOVENOX SUB-Q SCH (21:43)
[2017-12-19] MEDS: ZOSYN/NS 4.5GM/100ML 4.5 GM/100 ML VIAL IV SCH ×3 (05:59→21:50)
[2017-12-19 07:52] LABS: Basophils % (Auto) 0.2 % (0.0-1.8); Eosinophils # (Auto) 0.1 K/mm3 (0.0-0.4); Hematocrit 29.4 % (30.3-42.9); Hemoglobin 9.6 gm/dl (10.1-14.3); Lymphocytes # (Auto) 1.3 K/mm3 (1.2-5.4); Lymphocytes % (Auto) 15.8 % (13.4-35.0); Mean Corpuscular HGB Conc 33 % (30-34); Mean Corpuscular Hemoglobin 28 pg (28-32); Mean Corpuscular Volume 86 fl (79-97); Monocytes # (Auto) 0.7 K/mm3 (0.0-0.8); Monocytes % (Auto) 8.4 % (0.0-7.3); Platelet Count 192 K/mm3 (140-440); Red Blood Count 3.42 M/mm3 (3.65-5.03); Red Cell Distribution Width 13.8 % (13.2-15.2)
[2017-12-19 08:52] LABS: BUN/Creatinine Ratio 6; Blood Urea Nitrogen 3 mg/dL (7-17); Calcium 7.9 mg/dL (8.4-10.2); Hemolysis Index 8
[2017-12-19 08:54] LABS: Alanine Aminotransferase 13 units/L (7-56); BUN/Creatinine Ratio 8; Blood Urea Nitrogen 3 mg/dL (7-17); Calcium 7.9 mg/dL (8.4-10.2); Hemolysis Index 2
--- NOTE | 2017-12-19 10:11 | Progress Note ---
Assessment and Plan Assessment and plan: Patient is a 42 yo woman history of but without chronic medical problems who pw abd pains, n/v/d * CT Abdomen/pelvis with IV contrast impression: Mildly dilated loops of mid to distal small bowel are identified concerning fora partialsmall bowel obstruction.The site of obstruction is not clearly evident but appears to be in the pelvis.2.9 cm right ovarian cyst. * XR abd/CXR reported as no radiographic evidenc of acute cardiopulmonary disease, air in stool in the mid abdomen, consider ileus, cannot exclude partial small bowel obstruction -Small bowel obstruction: NG tube to suction, IV fluids, Gen. Surgeon, Dr. Starr already notified -Hypokalemia: Suppplemented, monitor closely -Leukocytosis resolved quickly: most likely reactive, Lactic acid is high, Will initiate on Zosyn and deescalate depending on Blood cultures in 48 hrs -Mild to Moderate malnutrition, alb 3.0: consult Airplane Designer, continue dextrose additives IVF -Drop in HCT steady: repeat cbc level and monitor cbc closely -DVT prophylaxis: On Lovenox -GI prophylaxis: iv protonix Gen. Surgeon has not evaluated patient yet, so I called Dr. Starr answering service==>d/w him Small bowel follow through (SBFT): today History Interval history: Patient was seen and examined. Follow-up on current diagnosis of n/v. Overnight uneventful. Patient denies any chest pain, shortness breath, or severe headaches. Imaging, nursing note, chart, labs and old chart reviewed. Discussed with patient. Hospitalist Physical - Physical exam Narrative exam: GEN: WDWN, NAD, Awake, Alert, Orientated x 3 HEENT: NCAT, EOMI, PERRL, ngt in place NECK: supple, no adenopathy, no thyromegaly, no JVD CVS/HEART: RRR, normal S1S2, pulses present bilaterally CHEST/LUNGS: CTA B, Symmetrical chest expansion, good air entry bilaterally GI/Abdomen: soft, good bs, ntnd, no guarding or rebound /Bladder: no suprapubic tenderness, no CVA or paraspinal tenderness EXT/Skin: no c/c/e, no obvious rash MSK: FROM x 4 Neuro: CN 2-12 grossly intact, no new focal deficits Psych: calm - Constitutional Vitals: Temp Pulse Resp BP Pulse Ox 98.3 F 71 18 117/76 100 12/19/17 07:15 12/19/17 07:15 12/19/17 08:10 12/19/17 07:15 12/19/17 07:15 General appearance: Present: well-nourished Results - Labs CBC & Chem 7: 12/19/17 06:44 06 06:44 Labs: Laboratory Last Values WBC 8.3 K/mm3 (4.5-11.0) 12/19/17 06:44 RBC 3.42 M/mm3 (3.65-5.03) L 12/19/17 06:44 Hgb 9.6 gm/dl (10.1-14.3) L 12/19/17 06:44 Hct 29.4 % (30.3-42.9) L 12/19/17 06:44 MCV 86 fl (79-97) 12/19/17 06:44 MCH 28 pg (28-32) 12/19/17 06:44 MCHC 33 % (30-34) 12/19/17 06:44 RDW 13.8 % (13.2-15.2) 12/19/17 06:44 Plt Count 192 K/mm3 (140-440) 12/19/17 06:44 Lymph % (Auto) 15.8 % (13.4-35.0) 12/19/17 06:44 [place] % (Auto) 8.4 % (0.0-7.3) H 12/19/17 06:44 Eos % (Auto) 1.0 % (0.0-4.3) 12/19/17 06:44 Baso % (Auto) 0.2 % (0.0-1.8) 12/19/17 06:44 Lymph # 1.3 K/mm3 (1.2-5.4) 12/19/17 06:44 [place] # 0.7 K/mm3 (0.0-0.8) 12/19/17 06:44 Eos # 0.1 K/mm3 (0.0-0.4) 12/19/17 06:44 Baso # 0.0 K/mm3 (0.0-0.1) 12/19/17 06:44 Add Manual Diff Complete 12/17/17 05:58 Total Counted 100 12/17/17 05:58 Seg Neutrophils % 74.6 % (40.0-70.0) H 12/19/17 06:44 Seg Neuts % (Manual) 83.0 % (40.0-70.0) H 12/17/17 05:58 Band Neutrophils % 5.0 % 12/17/17 05:58 Lymphocytes % (Manual) 5.0 % (13.4-35.0) L 12/17/17 05:58 Reactive Lymphs % (Man) 0 % 12/17/17 05:58 Monocytes % (Manual) 7.0 % (0.0-7.3) 12/17/17 05:58 Eosinophils % (Manual) 0 % (0.0-4.3) 12/17/17 05:58 Basophils % (Manual) 0 % (0.0-1.8) 12/17/17 05:58 Metamyelocytes % 0 % 12/17/17 05:58 Myelocytes % 0 % 12/17/17 05:58 Promyelocytes % 0 % 12/17/17 05:58 Blast Cells % 0 % 12/17/17 05:58 Nucleated RBC % Not Reportable 12/17/17 05:58 Seg Neutrophils # 6.2 K/mm3 (1.8-7.7) 12/19/17 06:44 Seg Neutrophils # Man 15.5 K/mm3 (1.8-7.7) H 12/17/17 05:58 Band Neutrophils # 0.9 K/mm3 12/17/17 05:58 Lymphocytes # (Manual) 0.9 K/mm3 (1.2-5.4) L 12/17/17 05:58 Abs React Lymphs (Man) 0.0 K/mm3 12/17/17 05:58 Monocytes # (Manual) 1.3 K/mm3 (0.0-0.8) H 12/17/17 05:58 Eosinophils # (Manual) 0.0 K/mm3 (0.0-0.4) 12/17/17 05:58 Basophils # (Manual) 0.0 K/mm3 (0.0-0.1) 12/17/17 05:58 Metamyelocytes # 0.0 K/mm3 12/17/17 05:58 Myelocytes # 0.0 K/mm3 12/17/17 05:58 Promyelocytes # 0.0 K/mm3 12/17/17 05:58 Blast Cells # 0.0 K/mm3 12/17/17 05:58 WBC Morphology Not Reportable 12/17/17 05:58 Hypersegmented Neuts Not Reportable 12/17/17 05:58 Hyposegmented Neuts Not Reportable 12/17/17 05:58 Hypogranular Neuts Not Reportable 12/17/17 05:58 Smudge Cells Not Reportable 12/17/17 05:58 Toxic Granulation Not Reportable 12/17/17 05:58 Toxic Vacuolation Not Reportable 12/17/17 05:58 Dohle Bodies Not Reportable 12/17/17 05:58 Pelger-Huet Anomaly Not Reportable 12/17/17 05:58 Laura Rods Not Reportable 12/17/17 05:58 Platelet Estimate Not Reportable 12/17/17 05:58 Clumped Platelets Not Reportable 12/17/17 05:58 Plt Clumps, EDTA Not Reportable 12/17/17 05:58 Large Platelets Not Reportable 12/17/17 05:58 Giant Platelets Not Reportable 12/17/17 05:58 Platelet Satelliting Not Reportable 12/17/17 05:58 Plt Morphology Comment Not Reportable 12/17/17 05:58 RBC Morphology Normal 12/17/17 05:58 Dimorphic RBCs Not Reportable 12/17/17 05:58 Polychromasia Not Reportable 12/17/17 05:58 Hypochromasia Not Reportable 12/17/17 05:58 Poikilocytosis Not Reportable 12/17/17 05:58 Anisocytosis Not Reportable 12/17/17 05:58 Microcytosis Not Reportable 12/17/17 05:58 Macrocytosis Not Reportable 12/17/17 05:58 Spherocytes Not Reportable 12/17/17 05:58 Pappenheimer Bodies Not Reportable 12/17/17 05:58 Sickle Cells Not Reportable 12/17/17 05:58 Target Cells Not Reportable 12/17/17 05:58 Tear Drop Cells Not Reportable 12/17/17 05:58 Ovalocytes Not Reportable 12/17/17 05:58 Helmet Cells Not Reportable 12/17/17 05:58 Davis-Grawn Bodies Not Reportable 12/17/17 05:58 [place] Rings Not Reportable 12/17/17 05:58 [place] Cells Not Reportable 12/17/17 05:58 Bite Cells Not Reportable 12/17/17 05:58 Crenated Cell Not Reportable 12/17/17 05:58 Elliptocytes Not Reportable 12/17/17 05:58 Acanthocytes (Spur) Not Reportable 12/17/17 05:58 Rouleaux Not Reportable 12/17/17 05:58 Hemoglobin C Crystals Not Reportable 12/17/17 05:58 Schistocytes Not Reportable 12/17/17 05:58 Malaria parasites Not Reportable 12/17/17 05:58 Alexis Bodies Not Reportable 12/17/17 05:58 Hem Pathologist Commnt No 12/17/17 05:58 Sodium 143 mmol/L (137-145) 12/19/17 06:44 Potassium 4.1 mmol/L (3.6-5.0) 12/19/17 06:44 Chloride 107.6 mmol/L (98-107) H 12/19/17 06:44 Carbon Dioxide 26 mmol/L (22-30) 12/19/17 06:44 Anion Gap 14 mmol/L 12/19/17 06:44 BUN 3 mg/dL (7-17) L 12/19/17 06:44 Creatinine 0.4 mg/dL (0.7-1.2) L 12/19/17 06:44 Estimated GFR > 60 ml/min 12/19/17 06:44 BUN/Creatinine Ratio 8 % 12/19/17 06:44 Glucose 88 mg/dL (65-100) 12/19/17 06:44 Hemoglobin A1c 5.5 % (4-6) 12/17/17 19:33 Lactic Acid 1.00 mmol/L (0.7-2.0) 12/17/17 15:46 Calcium 7.9 mg/dL (8.4-10.2) L 12/19/17 06:44 Total Bilirubin 0.70 mg/dL (0.1-1.2) 12/19/17 06:44 AST 20 units/L (5-40) 12/19/17 06:44 ALT 13 units/L (7-56) 12/19/17 06:44 Alkaline Phosphatase 46 units/L (35-129) 12/19/17 06:44 Total Protein 5.8 g/dL (6.3-8.2) L 12/19/17 06:44 Albumin 3.0 g/dL (3.9-5) L 12/19/17 06:44 Albumin/Globulin Ratio 1.1 % 12/19/17 06:44 Lipase 48 units/L (13-60) 12/17/17 05:58 HCG, Qual Negative (Negative) 12/17/17 05:58 Urine Color Yellow (Yellow) 12/17/17 06:48 Urine Turbidity Clear (Clear) 12/17/17 06:48 Urine pH 6.0 (5.0-7.0) 12/17/17 06:48 Ur Specific [place] 1.019 (1.003-1.030) 12/17/17 06:48 Urine Protein <15 mg/dl mg/dL (Negative) 12/17/17 06:48 Urine Glucose (UA) Neg mg/dL (Negative) 12/17/17 06:48 Urine Ketones Tr mg/dL (Negative) 12/17/17 06:48 Urine Blood Neg (Negative) 12/17/17 06:48 Urine Nitrite Neg (Negative) 12/17/17 06:48 Urine Bilirubin Neg (Negative) 12/17/17 06:48 Urine Urobilinogen < 2.0 mg/dL (<2.0) 12/17/17 06:48 Ur Leukocyte Esterase Neg (Negative) 12/17/17 06:48 Urine WBC (Auto) < 1.0 /HPF (0.0-6.0) 12/17/17 06:48 Urine RBC (Auto) 4.0 /HPF (0.0-6.0) 12/17/17 06:48 U Epithel Cells (Auto) 2.0 /HPF (0-13.0) 12/17/17 06:48 Urine Mucus 1+ /HPF 12/17/17 06:48 Blood Type B POSITIVE 12/17/17 11:31 Antibody Screen Negative 12/17/17 11:31
[2017-12-19] MEDS: PROTONIX IV SCH (10:52)
[2017-12-19] MEDS: PEPCID IV SCH (10:52)
[2017-12-19] MEDS: D5W/0.45% NACL/KCL 40 MEQ 40 MEQ/1,000 ML BAG IV SCH ×2 (10:53→21:49)
--- NOTE | 2017-12-19 12:58 | Fluoroscopy Report ---
SMALL BOWEL SERIES: History: Small bowel obstruction. Gastrografin contrast agent passes through the small bowel in a normal transit time. There is a normal mucosal pattern with no contour abnormalities identified. No fluoroscopic images were obtained. IMPRESSION: Normal study.
[2017-12-19] MEDS: SODIUM CHLORIDE FLUSH SYRINGE 10 ML IV SCH ×2 (13:04→22:54)
--- NOTE | 2017-12-19 13:36 | Progress Note ---
Assessment and Plan Pt feeling well. + diarrhea Abd soft, non tender + BS K now wnl (4.2) SBFT study - wnl stable resolving ileus vs partial sbo d/c ng begin non carbonated cl liq diet probable advance to solid diet in am if diarrhea has resolved Selected Entries 12/18/17 12/19/17 22:00 07:15 Temperature 98.3 F Pulse Rate [ 70 Apical] Respiratory 16 Rate Blood Pressure 117/76 Laboratory Tests 12/18/17 12/19/17 12/19/17 05:29 06:44 06:44 WBC 8.3 Hgb 9.4 L D 9.6 L Hct 28.5 L D 29.4 L Potassium 4.2 D Carbon Dioxide 27 Anion Gap 13 Objective Vital Signs - 12hr 12/19/17 12/19/17 07:15 08:10 Temperature 98.3 F Pulse Rate 71 Respiratory 16 18 Rate Respiratory 18 Rate [Abdomen] Blood Pressure 117/76 O2 Sat by Pulse 100 Oximetry - Labs 12/19/17 06:44 12/19/17 06:44 Diabetes panel 12/19/17 12/19/17 Range/Units 06:44 06:44 Sodium 144 143 (137-145) mmol/L Potassium 4.2 D 4.1 (3.6-5.0) mmol/L Chloride 108.2 H 107.6 H (98-107) mmol/L Carbon Dioxide 27 26 (22-30) mmol/L BUN 3 L 3 L (7-17) mg/dL Creatinine 0.5 L 0.4 L (0.7-1.2) mg/dL Glucose 88 88 (65-100) mg/dL Calcium 7.9 L 7.9 L (8.4-10.2) mg/dL AST 20 (5-40) units/L ALT 13 (7-56) units/L Alkaline Phosphatase 46 (35-129) units/L Total Protein 5.8 L (6.3-8.2) g/dL Albumin 3.0 L (3.9-5) g/dL Calcium panel 12/19/17 12/19/17 Range/Units 06:44 06:44 Calcium 7.9 L 7.9 L (8.4-10.2) mg/dL Albumin 3.0 L (3.9-5) g/dL Pituitary panel 12/19/17 12/19/17 Range/Units 06:44 06:44 Sodium 144 143 (137-145) mmol/L Potassium 4.2 D 4.1 (3.6-5.0) mmol/L Chloride 108.2 H 107.6 H (98-107) mmol/L Carbon Dioxide 27 26 (22-30) mmol/L BUN 3 L 3 L (7-17) mg/dL Creatinine 0.5 L 0.4 L (0.7-1.2) mg/dL Glucose 88 88 (65-100) mg/dL Calcium 7.9 L 7.9 L (8.4-10.2) mg/dL Adrenal panel 12/19/17 12/19/17 Range/Units 06:44 06:44 Sodium 144 143 (137-145) mmol/L Potassium 4.2 D 4.1 (3.6-5.0) mmol/L Chloride 108.2 H 107.6 H (98-107) mmol/L Carbon Dioxide 27 26 (22-30) mmol/L BUN 3 L 3 L (7-17) mg/dL Creatinine 0.5 L 0.4 L (0.7-1.2) mg/dL Glucose 88 88 (65-100) mg/dL Calcium 7.9 L 7.9 L (8.4-10.2) mg/dL Total Bilirubin 0.70 (0.1-1.2) mg/dL AST 20 (5-40) units/L ALT 13 (7-56) units/L Alkaline Phosphatase 46 (35-129) units/L Total Protein 5.8 L (6.3-8.2) g/dL Albumin 3.0 L (3.9-5) g/dL
[2017-12-19] MEDS: LOVENOX SUB-Q SCH (21:51)
[2017-12-20] MEDS: ZOSYN/NS 4.5GM/100ML 4.5 GM/100 ML VIAL IV SCH (05:24)
[2017-12-20] MEDS: D5W/0.45% NACL/KCL 40 MEQ 40 MEQ/1,000 ML BAG IV SCH (06:05)
[2017-12-20 07:56] LABS: Hematocrit 28.1 % (30.3-42.9); Hemoglobin 9.2 gm/dl (10.1-14.3); Mean Corpuscular HGB Conc 33 % (30-34); Mean Corpuscular Hemoglobin 28 pg (28-32); Mean Corpuscular Volume 86 fl (79-97); Platelet Count 188 K/mm3 (140-440); Red Blood Count 3.25 M/mm3 (3.65-5.03); Red Cell Distribution Width 13.8 % (13.2-15.2)
[2017-12-20 08:06] VITALS: BP 104/64
[2017-12-20 08:14] LABS: BUN/Creatinine Ratio 6; Blood Urea Nitrogen 3 mg/dL (7-17); Calcium 8.2 mg/dL (8.4-10.2); Hemolysis Index 0
--- NOTE | 2017-12-20 10:34 | Discharge Summary ---
Providers - Providers Date of Admission: 12/17/17 14:15 Date of discharge: 12/20/17 Attending physician: LYDIA CID 12/17/17 12:35 Consult to Physician [CONS] Urgent Comment: Consulting Provider: OJHN PRITCHETT Physician Instructions: SBO admitted to medicine Reason For Exam: small bowel obstruction Primary care physician: RN [facility] Hospitalization Reason for admission: SBO, abdominal pain n/v with Condition: Stable Pertinent studies: CT scan of abdomen and pelvis suggestive of small bowel obstruction. Chest x-ray was unremarkable Abdomen x-ray showed NG tube in place Small bowel x-ray was normal with no evidence of obstruction Procedures: None Hospital course: 42-year-old female past medical history C-sections presents with complaint of nausea, vomiting and abdominal pain since last night. Patient is awake alert and oriented 3 nontoxic-appearing speaking in full sentences. Denies any fever. Denies any recent abdominal trauma. No previous surgeries other than C- sections. Denies any dysuria or hematuria or increased urinary frequency. Patient states that her abdomen is intermittently hurting her significantly. CT scan of the abdomen and pelvis on admission was remarkable for possible small bowel obstruction. NG tube was placed, patient was nothing by mouth and commenced on IV hydration. Surgical consult was obtained. Leukocytosis and hypokalemia identified with corrected. Abdominal pain resolved. Patient started having bowel movement. Nausea vomiting resolved. NG tube was removed. Patient tolerating clear liquids. She had been discharged today to follow primary care physician in 3-5 days as well as to follow-up with surgeon if symptoms persist. Disposition: TO HOME OR SELFCARE Time spent for discharge: 35 minutes - Discharge Diagnoses (1) Hypokalemia Status: Acute (2) Leukocytosis Status: Acute Qualifiers: Leukocytosis type: unspecified Qualified Code(s): D72.829 - Elevated white blood cell count, unspecified (3) Small bowel obstruction Status: Acute Core Measure Documentation - Palliative Care Palliative Care/ Comfort Measures: Not Applicable - Core Measures Any of the following diagnoses?: none Exam - Physical Exam Narrative exam: Constitutional: Well-nourished well-developed. In no distress Head: Normocephalic atraumatic Eyes: Pupils are equal round and reactive to light Nose: No enlarged turbinates, no septal deviation. Mouth: Moist mucous membranes. Neck: Supple no thyromegaly. No bruit. No JVD Heart: Regular rate and rhythm, S1-S2 abnormal. No rubs murmurs or gallop Lungs: Clear to auscultation bilaterally no rales or rhonchi Abdomen: Soft, nontender. Bowel sound are present. Extremities: No edema no cyanosis and no clubbing. Neuro: Alert oriented Oriented x3. No focal sensory or motor deficit. Skin: No rashes no hyperemic spots Psychiatry: Euthymic. Calm. - Constitutional Vitals: Temp Pulse Resp BP Pulse Ox 98.5 F 67 16 104/64 99 12/20/17 07:24 12/20/17 07:24 12/20/17 07:24 12/20/17 07:24 12/20/17 07:24 Plan Activity: advance as tolerated Weight Bearing Status: Weight Bear as Tolerated Diet: regular Additional Instructions: Regular diet was advised after 1-2 days of soft diet Follow up with: PRIMARY CARE, [Primary Care Provider] - 3-5 Days Prescriptions: Ondansetron [Zofran ORAL LIQ] 4 mg PO Q8HR PRN #30 ml PRN Reason: Nausea And Vomiting Pantoprazole [Protonix TAB] 40 mg PO DAILY #30 tablet
--- NOTE | 2017-12-20 13:16 | Progress Note ---
Assessment and Plan Pt feeling well without compl. scott cl liq. still "loose stools" Abd flat, soft, non tender +BS surgically stable may d/c on cl liq to advance to solid diet at home once diarrhea resolves rto tues call if any N, V or abd distention develops before then... Selected Entries 12/20/17 07:24 Temperature 98.5 F Pulse Rate 67 Respiratory 16 Rate Blood Pressure 104/64 Objective Vital Signs - 12hr 12/20/17 07:24 Temperature 98.5 F Pulse Rate 67 Respiratory 16 Rate Blood Pressure 104/64 O2 Sat by Pulse 99 Oximetry - Labs 12/20/17 05:37 12/20/17 05:37 Diabetes panel 12/20/17 Range/Units 05:37 Sodium 142 (137-145) mmol/L Potassium 3.8 (3.6-5.0) mmol/L Chloride 106.6 (98-107) mmol/L Carbon Dioxide 26 (22-30) mmol/L BUN 3 L (7-17) mg/dL Creatinine 0.5 L (0.7-1.2) mg/dL Glucose 88 (65-100) mg/dL Calcium 8.2 L (8.4-10.2) mg/dL Calcium panel 12/20/17 Range/Units 05:37 Calcium 8.2 L (8.4-10.2) mg/dL Pituitary panel 12/20/17 Range/Units 05:37 Sodium 142 (137-145) mmol/L Potassium 3.8 (3.6-5.0) mmol/L Chloride 106.6 (98-107) mmol/L Carbon Dioxide 26 (22-30) mmol/L BUN 3 L (7-17) mg/dL Creatinine 0.5 L (0.7-1.2) mg/dL Glucose 88 (65-100) mg/dL Calcium 8.2 L (8.4-10.2) mg/dL Adrenal panel 12/20/17 Range/Units 05:37 Sodium 142 (137-145) mmol/L Potassium 3.8 (3.6-5.0) mmol/L Chloride 106.6 (98-107) mmol/L Carbon Dioxide 26 (22-30) mmol/L BUN 3 L (7-17) mg/dL Creatinine 0.5 L (0.7-1.2) mg/dL Glucose 88 (65-100) mg/dL Calcium 8.2 L (8.4-10.2) mg/dL
[2017-12-21] MEDS ORDERED: PROTONIX PO SCH (10:00)
== END 2017-12-20 14:43 | disposition home or self-care (01) | DRG 389 ==
LOC: ED 05:05 → 3A 14:15
PROVIDERS: ADMIT Internal Medicine; ATTEND Family Medicine
PROC: 0D9670Z Drainage of Stomach with Drainage Device, Via Natural or Artificial Opening (ICD-10-PCS; principal; 2017-12-17)
DX: K56.609 Unspecified intestinal obstruction, unspecified as to partial versus complete obstruction (principal); E44.1 Mild protein-calorie malnutrition; D72.829 Elevated white blood cell count, unspecified; E87.6 Hypokalemia; Z68.21 Body mass index [BMI] 21.0-21.9, adult; Z83.3 Family history of diabetes mellitus
CPT/HCPCS: 36415; 74018; 74022; 74177; 74250; 80048; 80053; 81001; 82140; 83036; 83690; 83735; 84703; 85007; 85025; 85027; 86850; 86900; 86901; 96361; 96374; 96375; 96376; C9113; J1650; J1885; J2405; J2543; J3480; J7030; J7042; Q9963; Q9967

== ENCOUNTER 2019-05-17 11:18 | Outpatient (CLI) | payer OTHER ==
--- NOTE | 2019-05-17 15:17 | Ultrasound Report ---
BILATERAL DIGITAL DIAGNOSTIC MAMMOGRAM WITH CAD -- 05/17/2019 RIGHT LIMITED BREAST ULTRASOUND INDICATION: Right palpable LUMP TECHNIQUE: Digital bilateral mammographic imaging was performed. Limited ultrasound was performed. T his examination was interpreted with the benefit of Computer-Aided Detection (CAD) analysis. COMPARISON: 03/29/2017 FINDINGS: Breast Density: The breasts are extremely dense, which lowers the sensitivity of mammography. MAMMOGRAPHIC FINDINGS: There is no evidence of dominant mass, suspicious calcifications or architectu ral distortion in either breast. A palpable marker is identified in the right axilla. ULTRASOUND FINDINGS: Targeted ultrasound evaluation was performed of the area of interest. Ultrasou nd of the right axilla demonstrated a heterogeneous hypoechoic lesion associated with thickened skin. It measures approximately 11 x 10 x 5 mm and demonstrates increased blood flow by color Doppler. IMPRESSION: A benign inflamed skin lesion of the right axilla. The sonographic characteristics sugges t a developing carbuncle or benign inclusion cyst with inflammation. Recommend clinical follow-up and routine mammographic screening. Follow up recommendation: Routine yearly BI-RADS Category 2: Benign. A "normal" or negative report should not discourage follow up or biopsy of a clinically significant f inding. A written summary of these findings will be mailed to the patient. The patient will be entered into a mammography reporting system which will generate a reminder letter for the patient's next appointmen t at the appropriate interval. According to the [employer], yearly mammograms are recommended starting at age 40 and continuing as long as a woman is in good health. Breast MRI is recommended for women with an loretta roximately 20-25% or greater lifetime risk of breast cancer, including women with a strong family his tory of breast or ovarian cancer and women who have been treated for Hodgkin's disease. Signer Name: Tavon Camacho MD Signed: 05/17/2019 3:12 PM Workstation Name: [id number]
== END 2019-05-17 11:19 | disposition home or self-care (01) ==
LOC: MAMMO 11:18
PROVIDERS: ATTEND Student in an Organized Health Care Education/Training Program
DX: N64.89 Other specified disorders of breast (principal); N63.31 Unspecified lump in axillary tail of the right breast; R92.2 Inconclusive mammogram
CPT/HCPCS: 77066